=== PATIENT | female | born 1935 | race Caucasian/White ===

== ENCOUNTER 2017-02-17 16:00 | Emergency (ER) | payer OTHER, BC ==
[~2017-02-17] VITALS: Ht 162.6 cm; Wt 85.9 kg
[~2017-02-17 16:00] MED LIST: ANTIVERT25 MG PO; ASPIRIN81 M1 PO; BENICAR HCT 401 EACH; BENICAR HCT1 TABLE1 PO; CALCIUM300 MG PO; DILTIAZEM; DILTIAZEM 240 MG; DILTIAZEM 24HR300 MG PO; DILTIAZEM 300 MG; FUROSEMIDE40 MG; HYDROCHLOROTHIA25 MG; HYDRODIURIL,ORE25 MG PO; K-DUR20 MEQ; K-DUR20 MEQ PO; LABETALOL HCL100 MG; LABETALOL HCL100 MG PO; LABETALOL HCL200 MG PO; LASIX40 MG PO; LISINOPRIL10 MG; MAGNESIUM250 MG PO; OMEGA 3-6-91200 MG PO; PANTOPRAZOLE SO40 MG; PRAVACHOL20 MG PO; PRAVASTATIN SOD20 MG; PROTONIX40 MG PO; TIAZAC240 M1 PO; TRAMADOL HCL50 MG; TRAMADOL HCL50 MG PO; XARELTO15 MG; XARELTO15 MG PO
[2017-02-17 17:40] LABS: EOSINOPHIL (%) 0.8 % (0-5); EOSINOPHIL COUNT 0.1 K/uL (0-0.3); HEMATOCRIT 37.8 % (36.0-46.0); IMMATURE GRANULOCYTE (%) 0.8 % (0.0-0.7); IMMATURE GRANULOCYTE COUNT 0.1 K/uL; INSTRUMENT ABS NEUTROPHIL CT 8.4 K/uL; MCH 30.3 PG (29.0-34.0); MCHC 32.5 G/DL (30.0-36.0); MCV 93.1 FL (83-99); MEAN PLAT.VOLUME 10.7 uM^3 (9.5-12.4); MONOCYTE (%) 9.9 % (3-12); MONOCYTE COUNT 1.1 K/uL (0-0.8); NEUTROPHIL (%) 79.1 % (45-76); NEUTROPHIL COUNT 8.4 K/uL (1.8-6.4); RBC DIS.WIDTH-CV 15.7 % (11.8-14.6); RBC DIS.WIDTH-SD 53.3 % (39-53); RED BLOOD COUNT 4.06 M/uL (3.80-5.20); WHITE BLOOD COUNT 10.6 K/uL (4.1-10.2)
[2017-02-17 17:55] LABS: ANION GAP 10 MEQ/L (2-14); CHLORIDE 101 mEq/L (99-109); GLUCOSE 107 mg/dL (70-99); POTASSIUM 3.5 mEq/L (3.7-5.4); SODIUM 134 mEq/L (136-147)
[2017-02-17 17:57] LABS: GFR ESTIMATE (CALCULATED) > 59 mL/min/
[2017-02-17 17:58] LABS: UREA NITROGEN (BUN) 20 mg/dL (9-23)
[2017-02-17 18:07] LABS: PLATELET COUNT 144 K/uL (156-360)
[2017-02-17 18:19] LABS: TROP-I INTERPRETATION NEGATIVE; TROPONIN-I < 0.01 ng/mL (0.0-0.30)
[2017-02-17 20:01] LABS: ADD MIUA? YES; BILIRUBIN NEGATIVE; BLOOD SMALL; GLUCOSE (STRIP) NEGATIVE; KETONES 20; LEUKOCYTES NEGATIVE; NITRITE NEGATIVE; PROTEIN (STRIP) 30; SPECIFIC GRAVITY 1.023 (1.000-1.030)
[2017-02-17 20:40] LABS: BACTERIA NONE SEEN /HPF; COLOR DK YELLOW ((YELLOW)); EPITHELIAL CELLS RARE /HPF; MUCUS 2+ /LPF; RED BLOOD CELLS 0-5 /HPF (0-5)
[2017-02-18 00:02] VITALS: BP 147/73
== END 2017-02-18 00:13 | disposition home or self-care (01) ==
LOC: EME 16:00
PROVIDERS: Physician Assistant
DX: R53.1 Weakness (principal); R11.0 Nausea; I10 Essential (primary) hypertension; E78.5 Hyperlipidemia, unspecified; K21.9 Gastro-esophageal reflux disease without esophagitis; I48.91 Unspecified atrial fibrillation; Z79.01 Long term (current) use of anticoagulants; G89.29 Other chronic pain; M54.5 Low back pain
CPT/HCPCS: 71020; 74177; 80048; 81003; 83605; 84484; 85025; 87086; 93005; 99281; 99285; J2405; J7030

== ENCOUNTER 2017-04-12 11:49 | Emergency (ER) | payer OTHER, BC ==
[~2017-04-12] VITALS: Ht 160 cm; Wt 83.6 kg
[2017-04-12] MEDS ORDERED: PERCOCET 5/31 TABLET PO (16:33)
[2017-04-12 17:31] VITALS: BP 151/83
== END 2017-04-12 17:32 | disposition home or self-care (01) ==
LOC: EME 11:49
PROC: 0CQ0XZZ Repair Upper Lip, External Approach (ICD-10-PCS; principal; 2017-04-12)
DX: S02.2XXA Fracture of nasal bones, initial encounter for closed fracture (principal); S01.511A Laceration without foreign body of lip, initial encounter; W01.0XXA Fall on same level from slipping, tripping and stumbling without subsequent striking against object, initial encounter; Y93.89 Activity, other specified; K21.9 Gastro-esophageal reflux disease without esophagitis; I10 Essential (primary) hypertension; E78.5 Hyperlipidemia, unspecified; J84.10 Pulmonary fibrosis, unspecified; G47.30 Sleep apnea, unspecified; Z79.01 Long term (current) use of anticoagulants
CPT/HCPCS: 70450; 70486; 99281; 99284

== ENCOUNTER 2017-05-13 12:32 | Emergency (ER) | payer OTHER, BC ==
[~2017-05-13] VITALS: Ht 162.6 cm; Wt 81.1 kg
[~2017-05-13 12:32] MED LIST changes: +PERCOCET 5/31 TABLET PO
[2017-05-13 15:02] VITALS: BP 159/91
== END 2017-05-13 15:03 | disposition home or self-care (01) ==
LOC: EME 12:32
DX: S01.511D Laceration without foreign body of lip, subsequent encounter (principal); I10 Essential (primary) hypertension; I48.91 Unspecified atrial fibrillation; Z79.01 Long term (current) use of anticoagulants; J84.10 Pulmonary fibrosis, unspecified
CPT/HCPCS: 99281; 99284